=== PATIENT | male | born 1995 | race Caucasian/White ===

== ENCOUNTER 2023-06-11 08:46 | Emergency (ER) | payer MEDICAID ==
[~2023-06-11] VITALS: Ht 193 cm; Wt 10.9 kg
[2023-06-11 08:50] VITALS: BP 136/73; PULSE 98; RESP 16; TEMP 99.2; O2SAT 99
[2023-06-11] MEDS ORDERED: mupirocin 2% ointment 22GM TP STA (09:50)
[2023-06-11] MEDS ORDERED: TETanus/Pertussis (Acell)/Diphther VAC/PF (Tdap-Adult) 0.5ml syringe IMVAC ONE (09:50)
[2023-06-11] MEDS ORDERED: MUPI22OI30 TOP (10:29)
[2023-06-11] MEDS ORDERED: IBUP-1986 PO (10:29)
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
--- NOTE | 2023-06-11 15:10 | NUR ---
Agree with [employer] [facility] documentation
== END 2023-06-11 11:28 | disposition home or self-care (01) ==
LOC: ER 08:47
DX: T20.26XA Burn of second degree of forehead and cheek, initial encounter (principal); T22.212A Burn of second degree of left forearm, initial encounter; T31.0 Burns involving less than 10% of body surface; F17.200 Nicotine dependence, unspecified, uncomplicated; X10.0XXA Contact with hot drinks, initial encounter; Y93.89 Activity, other specified; Y92.89 Other specified places as the place of occurrence of the external cause; Y99.8 Other external cause status
CPT/HCPCS: 16000; 90471; 90715; 99283

== ENCOUNTER 2024-01-25 16:19 | Emergency (ER) | payer MEDICAID ==
[~2024-01-25 16:19] MED LIST: IBUP-1986 PO; MUPI22OI30 TOP
[2024-01-25 17:41] LABS: BASOPHILS % (AUTO) 0.4 % (0-1); EOSINOPHILS # (AUTO) 0.2 X10'3 (0-0.9); EOSINOPHILS % (AUTO) 2.1 % (0-6); HEMATOCRIT 43.2 % (42.0-52.0); HEMOGLOBIN 14.7 g/dl (14.0-17.9); LYMPHOCYTES # (AUTO) 2.3 X10'3 (1.1-4.8); LYMPHOCYTES % (AUTO) 27.5 % (21-51); MEAN CORPUSCULAR HEMOGLOBIN 31.5 PG (27.0-31.0); MEAN CORPUSCULAR HGB CONC 34.2 g/dL (33.0-36.5); MEAN CORPUSCULAR VOLUME 92.2 FL (78-98); MEAN PLATELET VOLUME 7.7 FL (7.4-10.4); MONOCYTES % (AUTO) 12.1 % (2-12); NEUTROPHILS # (AUTO) 4.8 X10'3 (1.8-7.7); NEUTROPHILS % (AUTO) 57.9 % (42-75); PLATELET COUNT 271 X10'3 (140-440); RED BLOOD COUNT 4.68 X10'6 (4.70-6.10); RED CELL DISTRIBUTION WIDTH 13.1 % (11.5-14.5); WHITE BLOOD COUNT 8.3 X10'3 (4.5-11.0)
[2024-01-25 17:54] LABS: ALBUMIN 4.5 G/DL (3.4-5.0); ANION GAP 10 (8-16); BLOOD UREA NITROGEN 12 MG/DL (7-18); BUN/CREATININE RATIO 11.9 (10.0-20.0); CALCIUM 8.9 MG/DL (8.5-10.1); CHLORIDE 105 MMOL/L (99-107); CREATININE 1.01 MG/DL (0.60-1.10); GLUCOSE 98 MG/DL (70-104); POTASSIUM 3.7 MMOL/L (3.5-5.1); SODIUM 142 MMOL/L (135-145); TOTAL CARBON DIOXIDE 27.5 MMOL/L (24-32); eGFR 87 ML/MIN
[2024-01-25 18:03] LABS: URINE AMPHETAMINE SCREEN NEGATIVE (Neg); URINE BARBITUATE SCREEN NEGATIVE (Neg); URINE BENZODIAZEPINES SCREEN NEGATIVE (Neg); URINE CANNABINOID SCREEN POSITIVE (Neg); URINE COCAINE SCREEN NEGATIVE (Neg); URINE METHADONE SCREEN NEGATIVE (Neg); URINE OPIATE SCREEN NEGATIVE (Neg); URINE PHENCYCLIDINE SCREEN NEGATIVE (Neg)
[2024-01-25 18:04] LABS: ETHANOL < 10 MG/DL (<10)
[2024-01-25] MEDS ORDERED: BUPR-317 PO (20:24)
[2024-01-26 09:15] LABS: BILIRUBIN,URINE NEGATIVE (Neg); CLARITY,URINE CLOUDY (Clear); COLOR,URINE YELLOW (Yellow); GLUCOSE, URINE NEGATIVE (Neg); KETONES,URINE 15 mg/dl (Neg); LEUKOCYTE ESTERASE ,URINE NEGATIVE (Neg); NITRITES, URINE NEGATIVE (Neg); OCCULT BLOOD,URINE NEGATIVE (Neg); PROTEIN,URINE NEGATIVE (Neg)
[2024-01-26 09:23] LABS: UA COLLECTION TYPE CLN CATCH MIDSTREAM
[2024-01-26 09:26] LABS: AMORPHOUS PHOSPHATES 4+; MUCUS STRANDS MANY /LPF (Neg); SQUAMOUS EPITHELIAL CELL,UR MODERATE /LPF (FEW)
[2024-01-26 09:28] LABS: BACTERIA,URINE FEW /HPF (Neg); RBC,URINE 0-2 /HPF (0-2); WBC,URINE 50-100 /HPF (0-4)
[2024-01-26 17:58] VITALS: BP 134/90; PULSE 98; TEMP 98; O2SAT 96
[2024-01-26] MEDS: zolpidem 5mg tablet PO ONE (20:03)
[2024-01-27] MEDS: buPROPion SR 150mg tablet PO SCH (08:15)
[2024-01-27 08:20] VITALS: RESP 16
== END 2024-01-27 15:47 ==
LOC: ER 16:20
DX: F31.9 Bipolar disorder, unspecified (principal); Z20.822 Contact with and (suspected) exposure to COVID-19; R45.6 Violent behavior
CPT/HCPCS: 36415; 80048; 80305; 80320; 81001; 84443; 85025; 87077; 87088; 87186; 87811; 99285